=== PATIENT | male | born 1970 | race Caucasian/White ===

== ENCOUNTER 2018-09-09 09:57 | Observation (INO) ==
[2018-09-09] MEDS ORDERED: Ondansetron 4 MG/2 ML VIAL IVP ONE (10:17)
[2018-09-09] MEDS ORDERED: 0.9 % Sodium Chloride 1,000 ML IVC ONE ×2 (10:17→16:55)
[2018-09-09] MEDS ORDERED: Isovue-370 500 ML INFUS..BTL IV ONE ×2 (10:18→16:53)
[2018-09-09] MEDS ORDERED: *HR* FentaNYL (PF) 100 MCG/2 ML VIAL IVP ONE (10:18)
[2018-09-09] MEDS ORDERED: Ketorolac 15 MG/ML VIAL IVP ONE (10:18)
--- NOTE | 2018-09-09 10:21 | Emergency Department Note ---
Disposition Clinical Impression: Left lower quadrant abdominal pain of unknown etiology, Left leg weakness Disposition: Admitted As Inpatient Condition: Good Referrals: Penelope Davidson CNP [Primary Care Provider] - Forms: ED Satisfaction Letter Time of Disposition: 16:39 General Adult HPI - General Chief complaint: ED Extremity Problem,Nontraumatic Stated complaint: L Leg pain, no injury Time Seen by Provider: 09/09/18 10:08 Source: patient Mode of arrival: ambulatory Limitations: no limitations - History of Present Illness HPI Narrative: This is a 47-year-old male who comes emergency department reporting severe left leg pain. He states that the pain began 3-1/2 days ago, and that 3-1/2 days ago he was seen in the emergency department where nothing useful was found. He states that the pain has worsened since then, and that it is somewhat relieved if he lies on his left side. He states the pain is constant but worsens with movement or weightbearing. He perceives that as sharp and stabbing. Pain Scale: 10 - Related Data Home Medications Medication Instructions Recorded Confirmed Atenolol 100 mg PO DAILY 09/09/18 09/09/18 Atorvastatin [Lipitor] 40 mg PO HS 09/09/18 09/09/18 Glimepiride [Amaryl] 4 mg PO DAILY 09/09/18 09/09/18 Insulin Glargine,Hum.rec.anlog 20 unit SQ DAILY 09/09/18 09/09/18 [Lantus Solostar] Lisinopril [Zestril] 40 mg PO DAILY 09/09/18 09/09/18 Metformin HCl 1,000 mg PO BID 09/09/18 09/09/18 Morphine Immed Rel [Morphine 15 mg PO Q4HR PRN 09/09/18 09/09/18 Sulfate] Omeprazole [PriLOSEC] 40 mg PO DAILY 09/09/18 09/09/18 SitaGLIPtin [Januvia] 100 mg PO DAILY 09/09/18 09/09/18 hydroCHLOROthiazide 25 mg PO DAILY 09/09/18 09/09/18 [Hydrochlorothiazide] Allergies Allergy/AdvReac Type Severity Reaction Status Date / Time No Known Allergies Allergy Verified 09/09/18 10:02 All systems ED: reviewed and negative except as stated. Musculoskeletal: Reports: arthralgia, myalgia Past Medical History - Past Medical History Medical history: Reports: diabetes, GERD, hypertension Surgical history: Reports: orthopedic, other Psychiatric history: Reports: no psych history - Social History Smoking Status: Never smoker Smokeless Tobacco Status: No Alcohol use: Reports: none Drug use: Reports: none Physical Exam - General Limitations: no limitations General appearance: alert, in distress (In moderate to severe distress associated with left leg pain) - Head Head exam: atraumatic, normocephalic, normal inspection - Eye Eye exam: Present: normal appearance, PERRL, EOMI - Chest Chest inspection: Present: normal inspection, symmetric chest wall rise - Respiratory Respiratory exam: Present: normal lung sounds bilaterally - Cardiovascular Cardiovascular exam: Present: regular rate, normal rhythm, normal heart sounds - Abdominal Exam Abdominal exam: Present: soft, tenderness, distention. Absent: guarding, kenroy ound, rigidity Abdominal tenderness: Present: LLQ, severe. Absent: RUQ, RLQ, LUQ - Extremities Exam Extremities exam: Present: normal inspection, full ROM. Absent: tenderness (There was no tenderness at the left greater trochanter or along the left femur), pedal edema - Back Exam Back exam: Absent: CVA tenderness (R), CVA tenderness (L), paraspinal tenderness, vertebral tenderness - Neurological Exam Neurological exam: Present: alert, oriented X3 - Psychiatric Psychiatric exam: Present: normal affect, normal mood - Skin Skin exam: Present: warm, dry, intact, normal color Course Course Narrative: This is a 47-year-old male who appears to have an acute intra-abdominal pathology. He has dramatic left lower quadrant tenderness. Vital Signs Temperature 97.6 F 09/09/18 10:01 Pulse Rate 69 09/09/18 10:01 Respiratory Rate 18 09/09/18 10:01 Blood Pressure 147/83 09/09/18 10:01 O2 Sat by Pulse Oximetry 97 09/09/18 10:01 Temperature 97.6 F 09/09/18 10:14 Pulse Rate 72 09/09/18 13:56 Respiratory Rate 18 09/09/18 13:56 Blood Pressure 116/60 09/09/18 13:56 O2 Sat by Pulse Oximetry 98 09/09/18 13:56 Oxygen Delivery Oxygen Delivery Room Air Medical Decision Making - MDM Narrative Medical decision making narrative: This is a 47-year-old male with complaints of initially left hip pain and now left lower quadrant pain. No abnormalities have been seen on his evaluation here. Nursing attempted to walk him without success. I discussed his case with the construction trades teacher hospitalist, who accepted him for admission - Lab Data Lab results reviewed: Yes I reviewed the patient's lab results. Lab results narrative: CBC was unremarkable CMP showed bilirubin elevated at 1.2 Lipase was low Result diagrams: 09/09/18 10:09/09/18 10:27 Lab Results 09/09/18 09/09/18 09/09/18 Range/Units 10:27 10: 14:40 WBC 9.7 (4.3-11.1) K/mcL RBC 4.70 (4.19-5.50) M/mcL Hgb 14.0 (12.9-16.9) g/dL Hct 41.7 (37.5-50.1) % MCV 88.7 (83.0-100.0) fL MCH 29.8 (28.0-33.3) pg MCHC 33.6 (31.6-35.5) g/dL RDW 12.6 (11.5-14.5) % Plt Count 198 (140-400) K/mcL MPV 10.0 (9.4-12.4) fL Immature Gran % 0.4 (0-4) % Seg Neutrophils % 77.3 % Lymphocytes % 13.7 % Monocytes % 6.9 % Eosinophils % 0.8 % Basophils % 0.9 % Neutrophils # 7.5 (1.6-8.9) K/mcL Lymphocytes # 1.3 (0.6-4.6) K/mcL Monocytes # 0.7 (0.0-1.3) K/mcL Eosinophils # 0.1 (0.0-0.6) K/mcL Basophils # 0.1 (0.0-0.2) K/mcL Sodium 138 (136-145) mEq/L Potassium 4.1 (3.5-5.1) mEq/L Chloride 103 (98-107) mEq/L Carbon Dioxide 25 (23-29) mEq/L BUN 15 (6-20) mg/dL Creatinine 0.91 (0.70-1.30) mg/dL Est GFR ( Amer) > 60 (> 60) Est GFR (Non-Af Amer) > 60 (> 60) BUN/Creatinine Ratio 16 (6-26) Glucose 180 H (70-105) mg/dL Calculated Osmolality 291 (280-300) Calcium 9.3 (8.6-10.3) mg/dL Total Bilirubin 1.2 H (0.3-1.0) mg/dL Direct Bilirubin 0.2 (0.0-0.2) mg/dL Indirect Bilirubin 1.0 (0.0-1.2) mg/dL AST 20 (13-39) Units/L ALT 31 (7-52) Units/L Alkaline Phosphatase 55 (34-104) Units/L Serum Total Protein 6.8 (6.4-8.9) g/dL Albumin 4.2 (3.5-5.7) g/dL Globulin 2.6 (2.4-3.5) g/dL Albumin/Globulin Ratio 1.6 (1.1-2.2) Lipase 16 (11-82) Units/L Urine Color Yellow (Yellow) Urine Clarity Clear (Clear) Urine pH 5.5 (5.0-8.0) pH Units Ur Specific [place] 1.023 (1.010-1.025) Urine Protein Trace (Neg-Trace) mg/dL Urine Glucose (UA) 250 H (Normal) mg/dL Urine Ketones 15 H (Negative) mg/dL Urine Blood Negative (Negative) Urine Nitrite Negative (Negative) Urine Bilirubin Negative (Negative) Urine Urobilinogen Normal (Normal) mg/dL Ur Leukocyte Esterase Negative (Negative) Urine Microscopic RBC 0-3 (0-3) per hpf Urine Microscopic WBC 0-3 (0-3) per hpf Ur Squamous Epith Cells Moderate H (None-Few) per lpf Urine Bacteria None Seen (None-Few) per hpf Hyaline Casts None Seen (None-Few) per lpf Ur Culture Indicated? NO (NO) - Radiology Data Radiology results reviewed: Yes I reviewed the patient's radiology results. CT abdomen/pelvis showed bilateral perinephric fat stranding, no evidence of ureteral calculus, Hepatic steatosis, bibasilar opacities could be developing pneumonia; normal appendix, no diverticulitis Critical Care Time Critical Care Time: No
[2018-09-09 10:35] LABS: Basophils # 0.1 K/mcL (0.0-0.2); Basophils % 0.9 %; Eosinophils # 0.1 K/mcL (0.0-0.6); Eosinophils % 0.8 %; Hematocrit 41.7 % (37.5-50.1); Immature Granulocytes % 0.4 % (0-4); Lymphocytes # 1.3 K/mcL (0.6-4.6); Lymphocytes % 13.7 %; Mean Corpuscular HGB Conc 33.6 g/dL (31.6-35.5); Mean Corpuscular Hemoglobin 29.8 pg (28.0-33.3); Mean Corpuscular Volume 88.7 fL (83.0-100.0); Monocytes # 0.7 K/mcL (0.0-1.3); Monocytes % 6.9 %; Neutrophils # 7.5 K/mcL (1.6-8.9); Platelet Count 198 K/mcL (140-400); Red Cell Distribution Width 12.6 % (11.5-14.5); Segmented Neutrophils % 77.3 %
[2018-09-09 10:58] LABS: Alanine Aminotransferase 31 Units/L (7-52); Albumin 4.2 g/dL (3.5-5.7); Albumin/Globulin Ratio 1.6 (1.1-2.2); Alkaline Phosphatase 55 Units/L (34-104); Aspartate Amino Transferase 20 Units/L (13-39); BUN/Creatinine Ratio 16 (6-26); Bilirubin,Direct 0.2 mg/dL (0.0-0.2); Bilirubin,Total 1.2 mg/dL (0.3-1.0); Blood Urea Nitrogen 15 mg/dL (6-20); Calcium 9.3 mg/dL (8.6-10.3); Carbon Dioxide 25 mEq/L (23-29); Chloride 103 mEq/L (98-107); Globulin 2.6 g/dL (2.4-3.5); Glucose 180 mg/dL (70-105); Lipase 16 Units/L (11-82); Osmolality,Calculated 291 (280-300); Potassium 4.1 mEq/L (3.5-5.1); Sodium 138 mEq/L (136-145); Total Protein 6.8 g/dL (6.4-8.9); eGFR For Non-African Americans > 60 (> 60)
[2018-09-09 15:03] LABS: Bilirubin,Urine Negative (Negative); Blood,Urine Negative (Negative); Clarity,Urine Clear (Clear); Color,Urine Yellow (Yellow); Glucose,Urine (UA) 250 mg/dL (Normal); Ketones,Urine 15 mg/dL (Negative); Leukocyte Esterase,Urine Negative (Negative); Nitrite,Urine Negative (Negative); PH,Urine 5.5 pH Units (5.0-8.0); Protein,Urine Trace mg/dL (Neg-Trace); Specific Gravity,Urine 1.023 (1.010-1.025); Urobilinogen,Urine Normal (Normal)
[2018-09-09 15:06] LABS: Bacteria,Urine None Seen per hpf (None-Few); Hyaline Casts,Urine None Seen per lpf (None-Few); RBC,Urine 0-3 per hpf (0-3); Squamous Epithelial Cell,Urine Moderate per lpf (None-Few); WBC,Urine 0-3 per hpf (0-3)
[2018-09-09] MEDS ORDERED: Naloxone 0.4 MG/ML INJ IVP PRN (17:06)
[2018-09-09] MEDS ORDERED: Acetaminophen 325 MG TABLET PO PRN (17:06)
[2018-09-09] MEDS ORDERED: D5% in Water 1,000 ML IVC PRN (17:07)
[2018-09-09] MEDS ORDERED: Dextrose Gel 15 GM/37.5 ML TUBE PO PRN ×2 (17:07)
[2018-09-09] MEDS ORDERED: *HR* Dextrose 50 % in Water (Syg) 50 ML SYRINGE IVP PRN (17:07)
--- NOTE | 2018-09-09 17:11 | Internal Med History&Physical ---
Date of Encounter: 09/09/18 Time of Encounter: 17:09 Internal Medicine - H&P: HPI Chief complaint: My left leg hurts and I cannot walk Admitted From: Home Plans for Post Hospital Care: Home History of present illness: Mr. Donaldson is a 47 year old male with PMH of DM, HTN, GERD he presented to the ER complaining of left leg pain Apparently, he was in his normal state of health till last Saturday: 4 days ago when he developed severe acute pain in his LLE on his way back from work. he reports pain was sever , he presented to this ER where work up was negative and he was discharged home. He state he laid in bed all weekend and represented here because the pain is persistent and he is unable to bear weight on his LLE He reports associated numbness and tingling of his feet and occasional back pains but denies any trauma, weakness, no urinary incontinence or retention, no problems with his bowel habits. Patient received some fentanyl in the ER which relieved his pain While examining the patient, the ER physician, noted a LLQ pain and ordered an Abdomen CT scan which is unremarkable for any acute events The patient denies any chest , respiratory or neuro symptoms From the present work up, there is currently no objective finding, however, we will obtain hip and back imaging and place on observation, r/o drug seeking behavior vs neuropathy. Patient is full code Past Med Surg Social Fam HX - Past Medical History Medical history: diabetes, GERD, hypertension Psychiatric history: no psych history - Past Surgical History Surgical History: orthopedic, other Additional surgical history: l knee scope - Social History Smoking Status: Never smoker Smokeless Tobacco Status: No Alcohol use: none Drug use: none Internal Medicine - H&P: Meds Atenolol 100 mg PO DAILY 09/09/18 [History] Atorvastatin [Lipitor] 40 mg PO HS 09/09/18 [History] Glimepiride [Amaryl] 4 mg PO DAILY 09/09/18 [History] Insulin Glargine,Hum.rec.anlog [Lantus Solostar] 20 unit SQ DAILY 09/09/18 [History] Lisinopril [Zestril] 40 mg PO DAILY 09/09/18 [History] Metformin HCl 1,000 mg PO BID 09/09/18 [History] Morphine Immed Rel [Morphine Sulfate] 15 mg PO Q4HR PRN 09/09/18 [History] Omeprazole [PriLOSEC] 40 mg PO DAILY 09/09/18 [History] SitaGLIPtin [Januvia] 100 mg PO DAILY 09/09/18 [History] hydroCHLOROthiazide [Hydrochlorothiazide] 25 mg PO DAILY 09/09/18 [History] Allergy/AdvReac Type Severity Reaction Status Date / Time No Known Allergies Allergy Verified 09/09/18 10:02 All Systems PM: A 10-system review of systems was performed and is negative for pertinent findings except as documented above in the HPI. - Constitutional Constitutional: no chills, no fever(s), no night sweats - EENT Eyes: no change in vision, no discharge, no pain, no photophobia Ears: no ear discharge, no ear pain, no tinnitus Nose, mouth and throat: no dysphagia, no nasal discharge, no neck pain, no sore throat - Cardiovascular Cardiovascular ROS IM: no chest pain, no diaphoresis, no dyspnea, no lighthe adedness, no palpitations, no syncope - Respiratory Respiratory: no cough, no dyspnea, no wheezing, no excessive phlegm production - Gastrointestinal Gastrointestinal: no abdominal pain, no diarrhea, no hematemesis, no hem atochezia, no melena, no nausea, no vomiting - Musculoskeletal Musculoskeletal ROS IM: as per HPI - Integumentary Integumentary IM: no rash, no unusual bruising - Neurological Neurological ROS: no confusion, no convulsions, no focal weakness, no numbness, no tingling, no tremor(s) - Hematologic/Lymphatic Hematologic/Lymphatic: no easy bruising - Constitutional Vitals: Temp Pulse Resp BP Pulse Ox 97.6 F 73 18 134/68 96 09/09/18 10:14 09/09/18 16:46 09/09/18 16:46 09/09/18 16:46 09/09/18 16:46 General appearance: Present: A&O X 3, morbidly obese, pleasant Exam: see below - Head Head exam: Present: atraumatic, normocephalic - Eye Eye exam: Present: PERRL, conjuntiva pink, sclera anicteric Pupils: Present: PERRL - Neck Neck exam general surgery: Present: supple, trachea midline. Absent: lymphadenopathy - Respiratory Respiratory exam: Present: CTAB. Absent: accessory muscle use, rales, rhonchi, wheezes - Cardiovascular Cardiovascular exam: Present: RRR, +S1, +S2. Absent: diastolic murmur, gallop, rubs, systolic murmur - GI/Abdominal GI/Abdominal exam: Present: normal bowel sounds, soft, no peritoneal signs. Absent: distended, tenderness - Extremities Exam Extremities exam: Present: warm, radial pulses palpable and symmetrical. Absent: calf tenderness, cyanotic, pedal edema Additional comments: No leg swelling, no erythema, ROM in all joints WNL, pulses are present in all quadrants - Neurological Exam Neurological exam: Present: alert, CN II-XII intact, oriented X3, no focal deficits. Absent: pronater drift, facial droop, speech deficit - Skin Skin exam: Present: dry, intact Internal Med - H&P Results - Labs CBC & Chem 7: 09/09/18 10:27 09/09/18 10:27 Labs: Short CBC 09/09/18 Range/Units 10:27 WBC 9.7 (4.3-11.1) K/mcL Hgb 14.0 (12.9-16.9) g/dL Hct 41.7 (37.5-50.1) % Plt Count 198 (140-400) K/mcL Neutrophils # 7.5 (1.6-8.9) K/mcL BMP 09/09/18 10:27 Sodium 138 Potassium 4.1 Chloride 103 Carbon Dioxide 25 BUN 15 Creatinine 0.91 Glucose 180 H Calcium 9.3 Liver Function 09/09/18 Range/Units 10:27 Total Bilirubin 1.2 H (0.3-1.0) mg/dL Direct Bilirubin 0.2 (0.0-0.2) mg/dL AST 20 (13-39) Units/L ALT 31 (7-52) Units/L Alkaline Phosphatase 55 (34-104) Units/L Albumin 4.2 (3.5-5.7) g/dL Urine 09/09/18 Range/Units 14:40 Urine Color Yellow (Yellow) Urine Clarity Clear (Clear) Urine pH 5.5 (5.0-8.0) pH Units Ur Specific [place] 1.023 (1.010-1.025) Urine Protein Trace (Neg-Trace) mg/dL Urine Glucose (UA) 250 H (Normal) mg/dL - Impressions ITS Impressions Abdomen/Pelvis CT 09/09/18 10:18 IMPRESSION: 1. Bilateral perinephric fat stranding could suggest chronic medical renal disease with appropriate clinical history. No evidence of renal or ureteral calculus on current examination. 2. Hepatic steatosis. Clinical correlation recommended. 3. Increased bibasilar opacities could suggest areas of increasing subsegmental atelectasis or developing pneumonia. Clinical correlation recommended. D/ / Harlan Mcintosh / Harlan Mcintosh Interpreting Provider: Harlan Mcintosh - Assessment and plan (1) Unable to walk Current Visit: Yes Status: Acute Assessment and plan: Patient reports inability to walk or ambulate His strength in both LE is 5/5 He is on Morphine ER at home for pain Follow imaging reports-Xrays PTOT eval a.m (2) Left thigh pain Current Visit: Yes Status: Acute Assessment and plan: As above Consider likely diabetic neuropathy Patient denies any trauma, no back related problems, no swelling on the LLE He is concerned for clots, however, there is no recent risk factors, no swelling, no differential warmth or redness PTOT eval a.m Follow imaging -low suspicion for any acute events Continue home pain medications, verify from [facility] prior to discharge (3) Diabetes Current Visit: Yes Status: Chronic Assessment and plan: FS ACHS A1C with labs Basal, prandial and correctional insulin ADA diet Qualifiers: Diabetes mellitus type: type 2 Diabetes mellitus assistant terminal manager insulin use: with assistant terminal manager use Diabetes mellitus complication status: without complication Qualified Code(s): E11.9 - Type 2 diabetes mellitus without complications; Z79.4 - shelter (current) use of insulin (4) HTN (hypertension) Current Visit: Yes Status: Chronic Assessment and plan: continue home meds Qualifiers: Hypertension type: essential hypertension Qualified Code(s): I10 - Essential (primary) hypertension (5) Morbid obesity Current Visit: Yes Status: Chronic Assessment and plan: lifestyle modification encouraged (6) CKD (chronic kidney disease) Current Visit: Yes Status: Chronic Assessment and plan: Per Abdomen CT scan Renal function has been WNL n chart review Avoid nephrotoxins No stones per CT Qualifiers: Chronic kidney disease stage: unspecified stage Qualified Code(s): N18.9 - Chronic kidney disease, unspecified - Time Spent With Patient Total time spent is greater than 50% in coordination of care (as documented) at patient's floor/unit and/or counseling patient:
[2018-09-09] MEDS ORDERED: 0.9 % Sodium Chloride 1,000 ML IVC SCH (17:15)
[2018-09-09] MEDS: *HR* HYDROcodone/Acet 5/325 mg TABLET PO PRN (19:54)
[2018-09-09] MEDS ORDERED: Insulin DETEMIR 100 UNIT/ML X5UNITS SQ SCH (21:00)
[2018-09-09] MEDS ORDERED: Insulin LISPRO 300 UNITS/3 ML VIAL SQ SCH (21:00)
[2018-09-09] MEDS: *HR* Morphine Immed Rel 30 MG TABLET PO PRN (23:21)
[2018-09-10 04:44] LABS: Basophils # 0.1 K/mcL (0.0-0.2); Basophils % 0.8 %; Eosinophils # 0.2 K/mcL (0.0-0.6); Eosinophils % 1.9 %; Hematocrit 40.4 % (37.5-50.1); Hemoglobin 13.2 g/dL (12.9-16.9); Immature Granulocytes % 0.5 % (0-4); Lymphocytes % 23.5 %; Mean Corpuscular HGB Conc 32.7 g/dL (31.6-35.5); Mean Corpuscular Volume 88.8 fL (83.0-100.0); Mean Platelet Volume 10.3 fL (9.4-12.4); Monocytes # 0.7 K/mcL (0.0-1.3); Monocytes % 8.5 %; Neutrophils # 5.6 K/mcL (1.6-8.9); Platelet Count 185 K/mcL (140-400); Red Blood Count 4.55 M/mcL (4.19-5.50); Red Cell Distribution Width 12.5 % (11.5-14.5); Segmented Neutrophils % 64.8 %
[2018-09-10 05:00] LABS: BUN/Creatinine Ratio 16 (6-26); Blood Urea Nitrogen 15 mg/dL (6-20); Carbon Dioxide 26 mEq/L (23-29); Chloride 107 mEq/L (98-107); Glucose 147 mg/dL (70-105); Osmolality,Calculated 292 (280-300); Potassium 3.8 mEq/L (3.5-5.1); Sodium 139 mEq/L (136-145); eGFR For Non-African Americans > 60 (> 60)
[2018-09-10] MEDS: *HR* Morphine Immed Rel 30 MG TABLET PO PRN ×2 (05:21→09:36)
[2018-09-10] MEDS ORDERED: Insulin LISPRO 300 UNITS/3 ML VIAL SQ SCH ×2 (07:30→08:00)
[2018-09-10] MEDS ORDERED: Lisinopril 20 MG TABLET PO SCH (09:00)
[2018-09-10] MEDS ORDERED: hydroCHLOROthiazide 25 MG TABLET PO SCH (09:00)
[2018-09-10 09:09] LABS: Creatine Kinase 154 Units/L (30-223)
[2018-09-10 10:52] VITALS: BP 114/66
--- NOTE | 2018-09-10 13:17 | Discharge Summary ---
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 Donaldson is a 47 year old male with PMH of DM, HTN, GERD presented to the ER complaining of left leg pain and unable to ambulate. He does have intractable left leg pain. His lumbar spine CT did not show any acute pathology. His left hip x-ray did not show any fracture or no significant degenerative changes. Patient was admitted in the hospital and started him on symptomatic and supportive care. Patient was evaluated with physical therapy, who recommended home with 24-hour supervision and front wheel Walker. His venous Doppler came back is negative for any DVT. So will d/c him home with home health and Home PT / OT today. - Time Spent with Patient Total time spent providing and/or coordinating discharge services: - Discharge Medications Prescriptions: HYDROcodone/Acet 5/325 mg [[place] 5-325 mg] 1 tab PO Q6HR PRN 5 Days #15 tablet PRN Reason: Moderate Pain Home Medications: Atenolol 100 mg PO DAILY 09/09/18 [History] Atorvastatin [Lipitor] 40 mg PO HS 09/09/18 [History] Glimepiride [Amaryl] 4 mg PO DAILY 09/09/18 [History] Insulin Glargine,Hum.rec.anlog [Lantus Solostar] 20 unit SQ DAILY 09/09/18 [History] Lisinopril [Zestril] 40 mg PO DAILY 09/09/18 [History] Metformin HCl 1,000 mg PO BID 09/09/18 [History] Omeprazole [PriLOSEC] 40 mg PO DAILY 09/09/18 [History] SitaGLIPtin [Januvia] 100 mg PO DAILY 09/09/18 [History] hydroCHLOROthiazide [Hydrochlorothiazide] 25 mg PO DAILY 09/09/18 [History] HYDROcodone/Acet 5/325 mg [[place] 5-325 mg] 1 tab PO Q6HR PRN 5 Days #15 tablet 09/10/18 [Rx] Allergies/Adverse Reactions: Allergy/AdvReac Type Severity Reaction Status Date / Time No Known Allergies Allergy Verified 09/09/18 10:02 Date of admission: 09/09/18 16:50 Primary care physician: Penelope Davidson CNP Consults: 09/09/18 17:36 Consult to Physical Therapy [CONS] Routine Comment: Evaluate, develop and implement POC Reason for Consult: Unable to walk Does patient have active BEDREST order?: No Is patient medically & hemodynamically stable?: Yes - Constitutional Vitals: Temp Pulse Resp BP Pulse Ox 97.8 F 65 18 114/66 95 09/10/18 10:50 09/10/18 10:50 09/10/18 10:50 09/10/18 10:50 09/10/18 10:50 General appearance: Present: A&O X 3, morbidly obese, pleasant Exam: Gen: Alert, awake, Oriented to time,place and person Chest: Diminished breath sounds B/L, No wheezing, No crackles, No rales Heart: S1S2+ RRR No murmurs Abd: Soft, NT, BS +, No organomegaly Ext: No edema, pulses are palpable, No calf tenderness. mild limited ROM in Left hip.. No joint effusion noticed. Neuro : Benign findings Skin: No rash. - Patient Status Disposition: Home Health Service Condition: Good Overall status at discharge: patient is back to baseline - Discharge Instructions Follow Up With: Penelope Davidson CNP [Primary Care Provider] - 09/11/18 10:30 am - Diet and Activity Activity: increase activity as tolerated Diet: low salt diet
--- NOTE | 2018-09-10 13:20 | Physician Discharge Referral ---
Home Health/Hosp Referral Info Transfer to: Home Health Provider in Charge Post Discharge: PCP - Diagnosis (1) Unable to walk Status: Acute (2) Left thigh pain Status: Acute (3) Diabetes Status: Chronic (4) HTN (hypertension) Status: Chronic (5) Morbid obesity Status: Chronic (6) CKD (chronic kidney disease) Status: Chronic - Respiratory Orders Smoking Cessation: Smoking cessation has been advised. For more information, call the [place] Tobacco Quit Line at 4-891-MGCH-NOW. - Services Needed Following services are medically necessary services: Nursing, Physical Therapy, Occupational Therapy - Transfer Medications Prescriptions: HYDROcodone/Acet 5/325 mg [[place] 5-325 mg] 1 tab PO Q6HR PRN 5 Days #15 tablet PRN Reason: Moderate Pain Home Medications: Atenolol 100 mg PO DAILY 09/09/18 [History] Atorvastatin [Lipitor] 40 mg PO HS 09/09/18 [History] Glimepiride [Amaryl] 4 mg PO DAILY 09/09/18 [History] Insulin Glargine,Hum.rec.anlog [Lantus Solostar] 20 unit SQ DAILY 09/09/18 [History] Lisinopril [Zestril] 40 mg PO DAILY 09/09/18 [History] Metformin HCl 1,000 mg PO BID 09/09/18 [History] Omeprazole [PriLOSEC] 40 mg PO DAILY 09/09/18 [History] SitaGLIPtin [Januvia] 100 mg PO DAILY 09/09/18 [History] hydroCHLOROthiazide [Hydrochlorothiazide] 25 mg PO DAILY 09/09/18 [History] HYDROcodone/Acet 5/325 mg [[place] 5-325 mg] 1 tab PO Q6HR PRN 5 Days #15 tablet 09/10/18 [Rx] Allergies/Adverse Reactions: Allergy/AdvReac Type Severity Reaction Status Date / Time No Known Allergies Allergy Verified 09/09/18 10:02 Certification: Further, I certify that my clinical findings support that this patient is homebound (i.e. absences from home require considerable and taxing effort and are for medical reasons or yarsanism services or infrequently or short duration when for other reasons) because: Homebound Reason: Patient requires assistance of a person or device to safely leave home Attestation: My signature below is to certify that this patient is under my care and that I, or nurse practitioner, or a physician's geriatric assistant working with me, has a [id number] encounter with this patient.
[2018-09-10] MEDS: *HR* HYDROcodone/Acet 5/325 mg TABLET PO PRN (13:48)
== END 2018-09-10 15:36 | disposition home health service (06) ==
LOC: EMEROOARM 09:57 → 3BNU 09:57
PROVIDERS: ADMIT Internal Medicine; ATTEND Internal Medicine